=== PATIENT | male | born 1965 | race Caucasian/White ===

== ENCOUNTER → 2017-12-07 18:24 | Outpatient (CLI) | payer BC ==
[2017-12-07 19:08] LABS: ALBUMIN 4.1 g/dL (3.4-5.0); BILIRUBIN - DIRECT 0.17 mg/dL (0.00-0.30); BILIRUBIN - INDIRECT 0.42 mg/dL (0.00-1.00); BILIRUBIN - TOTAL 0.59 mg/dL (0.2-1.3); CHOL - HDL RATIO 4.7 ratio (2.3-4.9); LDL-HDL RATIO 3.1 ratio (1.5-3.5); PROTEIN - SERUM 6.9 g/dL (6.4-8.2)
== END | disposition home or self-care (01) ==
LOC: D.LABREF 18:24
PROVIDERS: Internal Medicine Cardiovascular Disease
DX: E78.5 Hyperlipidemia, unspecified (principal)

== ENCOUNTER → 2017-12-09 12:51 | Outpatient (CLI) | payer BC ==
--- NOTE | ~2017-12-09 | EC ---
PATIENT:EMILIA LONG DATE OF SERVICE: 12/09/17 SEX: M MEDICAL RECORD: [id number] DATE OF : 61 LOCATION:[facility] AGE OF PATIENT: 52 ADMISSION DATE: 12/09/17 REFERRING PHYSICIAN: INTERPRETING PHYSICIAN: GISELLA WADE MD ECHOCARDIOGRAM REPORT ECHO CHARGES 4 ECHO COMPLETE Date: 12/09/17 CLINICAL DIAGNOSIS: CHEST PAIN,PALPITATIONS ECHOCARDIOGRAPHIC MEASUREMENTS (adult normal given) AC root (d.<3.7cm) 3.7 cm LV Septum d (<1.2 cm> 1.4 cm Valve Excursion 1.7 cm LV Septum (systole) 1.6 cm Left Atria (s.<4.0cm> 3.1 cm LVPW d(<1.2cm) 1.5 cm RV (d.<2.3cm) 4.1 cm LVPW (sytole) 1.6 cm LV diastole(<5.6CM) 4.3 cm MV E-F(>70mm/sec) cm LV systole 2.9 cm LVOT Diameter 1.8 cm MV exc.(>10mm) 1.3 cm Est.ejection fraction (50-75%) % DOPPLER: LVIT cm/sec A 64.0 cm/sec E 49.0 cm/sec LA cm/sec RVSP 21 mmHg LVOT 69 cm/sec AOP1/2T m/s Asc. 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 Wade TAPE# PACS Pericardial Effusion N DATE OF SERVICE: PROCEDURE: Transthoracic echocardiogram. FINDINGS: 1. Left ventricle has mild left ventricular hypertrophy. Inflow characteristics are consistent with diastolic dysfunction, mild. No regional wall motion abnormality. Ejection fraction is 60%. 2. The left atrium is normal. 3. The aortic valve is normal. ECHOCARDIOGRAM REPORT [id number] EMILIA LONG 4. The mitral valve is normal with trace mitral regurgitation. 5. Tricuspid valve has trace tricuspid regurgitation. 6. The right ventricle is mildly dilated. 7. The right atrium is normal size, structure and function. There is no pericardial effusion. CONCLUSIONS: The patient has evidence of mild hypertensive heart disease, otherwise normal echocardiogram for stated age. TRANSINT:[id number] Voice Confirmation ID: [id number] DOCUMENT ID: [id number] GISELLA WADE MD at 2344 CC: [id number] DICTATION DATE: 12/11/17 1015 SENIOR POWER SCHEDULER: 12/11/17 1143 DEP CLI 12/09/17 [id number] [place] [address]
== END | disposition home or self-care (01) ==
LOC: D.ECHO 12:51
DX: R00.2 Palpitations (principal); R07.9 Chest pain, unspecified

== ENCOUNTER → 2018-01-04 12:43 | Outpatient (CLI) | payer BC | END | disposition home or self-care (01) | LOC: D.CT 12:43 | DX: R10.9 Unspecified abdominal pain (principal) ==

== ENCOUNTER → 2018-03-22 17:53 | Outpatient (CLI) | payer BC | END | disposition home or self-care (01) | LOC: D.LABREF 17:53 | DX: R07.9 Chest pain, unspecified (principal) ==